=== PATIENT | female | born 1990 | race Two or more races ===

== ENCOUNTER 2025-06-30 21:55 | Inpatient (IN) | payer BC ==
[~2025-06-30] VITALS: Ht 167.6 cm; Wt 76.2 kg
[2025-06-30 21:59] VITALS: O2SAT 98
[2025-06-30] MEDS: KETOROLAC 15MG/ML VIAL IM ONE (23:24)
[2025-06-30 23:29] LABS: CREATININE 1.2 mg/dL (0.6-1.0); UREA NITROGEN BLOOD 9 mg/dL (9-23)
[2025-06-30 23:30] LABS: BASOPHILS % 0.8 % (0.0-2.0); EOSINOPHILS % 2.0 % (0.0-5.0); HEMATOCRIT. 37.3 % (36.0-48.0); HEMOGLOBIN. 12.6 g/dL (12.0-16.0); LYMPHOCYTES % 30.9 % (20.0-50.0); MEAN PLATELET VOLUME 11.4 fl (7.4-10.4); MONOCYTES % 9.0 % (2.0-8.0); NEUTROPHILS % 57.3 % (40.0-76.0); PLATELET 190 x1000/uL (130-400); PROTEIN TOTAL 6.9 g/dL (6.0-8.3); RED BLOOD CELL COUNT 4.32 mill/uL (4.2-5.4); RED CELL DISTRIBUTION WIDTH 13.0 % (11.6-14.6)
[2025-06-30 23:31] LABS: ASPARTATE AMINOTRANSFERASE 41 IU/L (<34); BILIRUBIN DIRECT 0.1 mg/dL (<=3.0); BILIRUBIN TOTAL 0.4 mg/dL (0.1-1.0)
[2025-06-30 23:37] LABS: TROPONIN I HIGH SENSITIVITY 48 ng/L (3.0-34)
[2025-07-01] MEDS: ASPIRIN 81MG EC TABLET PO ONE (00:08)
[2025-07-01 02:36] LABS: TROPONIN I HIGH SENSITIVITY 43 ng/L (3.0-34)
[2025-07-01 05:02] VITALS: BP 116/72; PULSE 93; RESP 18; TEMP 36.974
[2025-07-01] MEDS ORDERED: BUPR100T13 PO (06:44)
[2025-07-01] MEDS ORDERED: ONDANSETRON HCL 4MG/2ML INJ IV PRN (07:15)
[2025-07-01] MEDS ORDERED: CLONIDINE 0.1MG TABLET PO PRN (07:15)
[2025-07-01] MEDS ORDERED: IPRATROPIUM/ALBUTEROL 0.5-3(2.5)MG/3ML NEB HHN PRN (07:15)
[2025-07-01] MEDS ORDERED: ACETAMINOPHEN 325MG TABLET PO PRN (07:15)
[2025-07-01] MEDS ORDERED: DOCUSATE SODIUM 100MG CAPSULE PO PRN (07:15)
[2025-07-01 08:00] VITALS: BP 110/69; PULSE 87; RESP 18; TEMP 36.6; O2SAT 100
[2025-07-01 08:29] LABS: CLARITY URINE CLEAR (CLEAR); COLOR URINE YELLOW (YELLOW); GLUCOSE URINE NEGATIVE (NEGATIVE); KETONES URINE NEGATIVE (NEGATIVE); LEUKOCYTE ESTERASE URINE 2+ (NEGATIVE); NITRITE URINE NEGATIVE (NEGATIVE); OCCULT BLOOD URINE NEGATIVE (NEGATIVE); PH URINE 5.5 (4.5-8.0); PROTEIN URINE NEGATIVE (NEGATIVE); SPECIFIC GRAVITY URINE 1.025 (1.005-1.030); UROBILINOGEN URINE 0.2 E.U./dL (0.2-1.0)
[2025-07-01 09:05] LABS: *AMPHETAMINES SCREEN URINE NEGATIVE (NEGATIVE)
[2025-07-01 09:08] LABS: *BARBITURATES SCREEN URINE NEGATIVE (NEGATIVE); *BENZODIAZEPINES SCREEN URINE NEGATIVE (NEGATIVE); *COCAINE SCREEN URINE NEGATIVE (NEGATIVE); CANNABINOID URINE SCREEN NEGATIVE (NEGATIVE); ECSTASY MDMA SCREEN URINE CONF.TEST INDICATED (NEGATIVE); METHADONE URINE SCREEN NEGATIVE (NEGATIVE); OPIATES URINE SCREEN NEGATIVE (NEGATIVE); PHENCYCLIDINE URINE SCREEN NEGATIVE (NEGATIVE)
[2025-07-01 10:58] LABS: CREATININE 0.9 mg/dL (0.6-1.0); UREA NITROGEN BLOOD 14 mg/dL (9-23)
[2025-07-01 11:00] LABS: HCG SCREEN NEGATIVE
[2025-07-01 11:05] LABS: BACTERIA URINE 2+; RBC URINE NONE SEEN /hpf (0-2)
[2025-07-01 11:06] LABS: MUCUS URINE 2+ /lpf (< = 2+)
[2025-07-01] MEDS: ACETAMINOPHEN 325MG TABLET PO PRN (11:25)
[2025-07-01] MEDS: ASPIRIN 81MG TABLET PO SCH (11:36)
[2025-07-01] MEDS: ENOXAPARIN 80MG/0.8ML SYR SUBCUT SCH (11:44)
[2025-07-01 12:00] VITALS: BP 114/67; PULSE 79; RESP 17; TEMP 37.1; O2SAT 98
[2025-07-01] MEDS ORDERED: ATORVASTATIN CALCIUM 40MG TABLET PO SCH (21:00)
[2025-07-01] MEDS ORDERED: BUPROPION HCL 75MG TABLET PO SCH (21:00)
[2025-07-02] MEDS ORDERED: ENOXAPARIN 80MG/0.8ML SYR SUBCUT SCH (23:00)
== END 2025-07-01 14:45 | disposition left against medical advice (07) | DRG 282 ==
LOC: ER 21:55 → EDBEDREQTM 07-01 03:04 → EDBEDREQDT 07-01 03:04 → EDBEDREQ 07-01 03:04 → ENRESERV 07-01 03:13 → 5WST 07-01 04:35
PROVIDERS: ADMIT Internal Medicine; ATTEND Internal Medicine
DX: I21.4 Non-ST elevation (NSTEMI) myocardial infarction (principal); F41.9 Anxiety disorder, unspecified; Z53.29 Procedure and treatment not carried out because of patient's decision for other reasons
CPT/HCPCS: 36415; 71045; 80048; 80076; 80305; 81003; 84484; 84703; 85025; 85379; 93005; 96372; 99285; J1650; J1885